=== PATIENT | male | born 1975 | race American Indian/Alaskan Native ===

== ENCOUNTER 2021-12-16 15:38 | Outpatient (CLI) | payer OTHER ==
--- NOTE | 2021-12-16 16:32 | XRay Report ---
Right knee 2 views INDICATION: Pain FINDINGS: Tricompartmental degenerative change most significant medial compartment and patellofemoral joint with joint space narrowing. Moderate joint effusion. No displaced fracture. Signer Name: Carlos Aragon MD Signed: 12/16/2021 4:28 PM Workstation Name: [id number]
== END 2021-12-16 15:39 | disposition home or self-care (01) ==
LOC: XRAY 15:38
PROVIDERS: ATTEND Orthopaedic Surgery
DX: M17.11 Unilateral primary osteoarthritis, right knee (principal); M25.461 Effusion, right knee